=== PATIENT | female | born 1980 | race Caucasian/White ===

== ENCOUNTER 2018-07-05 08:36 | Inpatient (IN) | payer MEDICAID, OTHER ==
[~2018-07-05] VITALS: Ht 172.7 cm; Wt 76.9 kg
[~2018-07-05 08:36] MED LIST: ARIP10TA8 PO; BUPR-93 PO; DIVA500T52 PO; GABA-533 PO; NALT50TA6 PO; TOPI100T37 PO
[2018-07-05 09:14] LABS: BASOPHILS % (AUTO) 0.9 % (0.0-2.0); EOSINOPHILS % (AUTO) 0.2 % (1.0-6.0); HEMATOCRIT 37.2 % (36-46); HEMOGLOBIN 12.9 g/dL (12.0-16.0); LYMPHOCYTES # (AUTO) 1.6 K/uL (1.0-4.8); LYMPHOCYTES % (AUTO) 21.9 % (22.0-44.0); MEAN CORPUSCULAR HEMOGLOBIN 31.1 pg (26.0-34.0); MEAN CORPUSCULAR HGB CONC 34.7 G/dL (31.0-37.0); MEAN CORPUSCULAR VOLUME 90 fL (80-100); MONOCYTES % (AUTO) 14.6 % (2.0-9.0); NEUTROPHILS # (AUTO) 4.4 K/uL (1.8-7.7); NEUTROPHILS % (AUTO) 62.4 % (40.0-70.0); PLATELET COUNT (AUTO) 420 K/uL (150-450); RED BLOOD CELL COUNT(AUTO) 4.15 MIL/uL (4.00-5.20); RED CELL DISTRIBUTION WIDTH 13.5 % (11.5-14.5)
[2018-07-05 09:25] LABS: ANION GAP 12 mmol/L (8-16); CALCIUM, TOTAL 9.7 mg/dL (8.8-10.5); CARBON DIOXIDE 24 mmol/L (22-29); CHLORIDE 98 mmol/L (98-107); CREATININE 0.79 mg/dL (0.60-1.30); GLOMERULAR FILTR. RATE CALC > 60 mL/min (>60); GLUCOSE,RANDOM 84 mg/dL (70-110); POTASSIUM 4.2 mmol/L (3.5-5.1); SODIUM SERUM 134 mmol/L (136-145); UREA NITROGEN, BLOOD 17 mg/dL (7-18)
[2018-07-05 09:31] LABS: ALANINE AMINOTRANSFERASE 30 U/L (12-78); ALBUMIN 4.6 g/dL (3.4-5.0); ALKALINE PHOSPHATASE 87 U/L (46-116); ASPARTATE AMINOTRANSFERASE 29 U/L (15-37); BILIRUBIN,TOTAL 0.4 mg/dL (0.1-1.0); TOTAL PROTEIN, SERUM 8.7 g/dL (6.4-8.2)
[2018-07-05 09:43] LABS: VALPROIC ACID 8 mcg/mL (50-100)
[2018-07-05] MEDS ORDERED: HALOPERIDOL LACTATE 5 MG/ML VIAL IM ONE (10:15)
[2018-07-05] MEDS ORDERED: DiphenhydrAMINE HCL 50 MG/ML VIAL IM ONE (10:15)
[2018-07-05] MEDS ORDERED: LORazepam 2 MG/ML VIAL IM ONE (10:15)
[2018-07-05 10:55] LABS: AMPHET/METH SCREEN,URINE NEGATIVE (NEGATIVE); BARBITURATE SCREEN, URINE NEGATIVE (NEGATIVE); BENZODIAZEPINES SCREEN,URINE NEGATIVE (NEGATIVE); CANNABINOID SCREEN,URINE NEGATIVE (NEGATIVE); COCAINE SCREEN,URINE NEGATIVE (NEGATIVE); METHADONE SCREEN, URINE NEGATIVE (NEGATIVE); OPIATE SCREEN,URINE NEGATIVE (NEGATIVE); PHENCYCLIDINE SCREEN,URINE NEGATIVE (NEGATIVE)
[2018-07-05] MEDS ORDERED: ZOLPIDEM TARTRATE 10 MG TABLET PO ONE (23:30)
[2018-07-05] MEDS ORDERED: NICOTINE 21 MG/24 HOUR PATCH TD ONE (23:30)
[2018-07-06 06:31] LABS: CHOL/HDL RATIO 1.6 (3.9-5.7); FREE T4 (FREE THYROXINE) 0.85 ng/dL (0.76-1.46); THYROID STIMULATING HORMONE 1.25 uIU/mL (0.36-3.74)
[2018-07-06] MEDS: LORazepam 2 MG TABLET PO PRN ×2 (07:35→14:29)
[2018-07-06] MEDS: HALOPERIDOL 5 MG TABLET PO PRN ×2 (07:35→14:28)
[2018-07-06 13:55] VITALS: BP 128/84
[2018-07-06 18:52] VITALS: BP 118/79
[2018-07-06] MEDS: ZOLPIDEM TARTRATE 10 MG TABLET PO PRN (21:16)
[2018-07-07 05:36] VITALS: BP 125/75
[2018-07-07] MEDS: LORazepam 2 MG TABLET PO PRN ×3 (06:55→16:15)
[2018-07-07] MEDS: TOPIRAMATE 25 MG TABLET PO SCH ×2 (08:56→16:15)
[2018-07-07] MEDS: NICOTINE 21 MG/24 HOUR PATCH TD SCH (08:57)
[2018-07-07] MEDS ORDERED: ESCITALOPRAM OXALATE 10 MG TABLET PO SCH (09:00)
[2018-07-07] MEDS ORDERED: HydrOXYzine PAMOATE 50 MG CAPSULE PO PRN (15:30)
[2018-07-07] MEDS ORDERED: PROMETHAZINE HCL 25 MG TABLET PO PRN (15:30)
[2018-07-07] MEDS ORDERED: QUEtiapine FUMARATE 100 MG TABLET PO PRN (15:30)
[2018-07-07] MEDS ORDERED: LOPERAMIDE HCL 2 MG CAPSULE PO PRN (15:30)
[2018-07-07] MEDS: THIAMINE HCL 100 MG TABLET PO SCH (16:15)
[2018-07-07 18:26] VITALS: BP 153/71
[2018-07-07 19:30] VITALS: BP 138/75
[2018-07-07] MEDS: DIVALPROEX SODIUM 500 MG ER TABLET PO SCH (20:10)
[2018-07-07] MEDS: OLANZapine 5 MG RAPDIS TABLET PO SCH (20:10)
[2018-07-07] MEDS ORDERED: QUEtiapine FUMARATE 200 MG TABLET PO SCH (21:00)
[2018-07-08 05:48] VITALS: BP 104/62
[2018-07-08] MEDS: MULTIVITAMINS WITH MINERALS, THERAPEUTIC TABLET PO SCH (08:06)
[2018-07-08] MEDS: FOLIC ACID 1 MG TABLET PO SCH (08:06)
[2018-07-08] MEDS: NALTREXONE HCL 50 MG TABLET PO SCH (08:06)
[2018-07-08] MEDS: THIAMINE HCL 100 MG TABLET PO SCH ×2 (08:06→16:38)
[2018-07-08] MEDS: TOPIRAMATE 25 MG TABLET PO SCH ×2 (08:07→16:39)
[2018-07-08] MEDS: GABAPENTIN 100 MG CAPSULE PO SCH ×3 (08:07→16:39)
[2018-07-08] MEDS: NICOTINE 21 MG/24 HOUR PATCH TD SCH (08:07)
[2018-07-08] MEDS: LORazepam 2 MG TABLET PO PRN ×3 (08:08→16:38)
[2018-07-08 08:19] VITALS: BP 122/71
[2018-07-08] MEDS: MAGNESIUM HYDROXIDE SUSPENSION 30 ML UDCUP PO PRN ×2 (08:22→16:40)
[2018-07-08] MEDS: OLANZapine 5 MG RAPDIS TABLET PO PRN ×2 (08:34→16:39)
[2018-07-08] MEDS ORDERED: BuPROPion HCL XL 150 MG ER TABLET PO SCH (09:00)
[2018-07-08 16:39] VITALS: BP 118/77
[2018-07-08] MEDS: GuaiFENesin/D-METHORPHAN [SUGAR-FREE] 200-20MG/10 ML SYRUP UDCUP PO PRN (16:39)
[2018-07-08] MEDS ORDERED: TOPIRAMATE 25 MG TABLET PO SCH (21:00)
[2018-07-08] MEDS: ZOLPIDEM TARTRATE 10 MG TABLET PO PRN (21:03)
[2018-07-08] MEDS: OLANZapine 5 MG RAPDIS TABLET PO SCH (21:04)
[2018-07-08] MEDS: DIVALPROEX SODIUM 500 MG ER TABLET PO SCH (21:04)
[2018-07-09 06:27] VITALS: BP 110/66
[2018-07-09 08:18] VITALS: BP 124/67
[2018-07-09] MEDS: NALTREXONE HCL 50 MG TABLET PO SCH (08:28)
[2018-07-09] MEDS: MULTIVITAMINS WITH MINERALS, THERAPEUTIC TABLET PO SCH (08:28)
[2018-07-09] MEDS: BuPROPion HCL XL 150 MG ER TABLET PO SCH (08:28)
[2018-07-09] MEDS: NICOTINE 21 MG/24 HOUR PATCH TD SCH (08:28)
[2018-07-09] MEDS: FOLIC ACID 1 MG TABLET PO SCH (08:28)
[2018-07-09] MEDS: GABAPENTIN 100 MG CAPSULE PO SCH ×3 (08:28→17:02)
[2018-07-09] MEDS: THIAMINE HCL 100 MG TABLET PO SCH ×2 (08:29→17:02)
[2018-07-09] MEDS ORDERED: TOPIRAMATE 100 MG TABLET PO SCH (09:00)
[2018-07-09] MEDS: LORazepam 2 MG TABLET PO PRN ×2 (10:18→15:17)
[2018-07-09] MEDS: OLANZapine 5 MG RAPDIS TABLET PO PRN (12:29)
[2018-07-09 17:17] VITALS: BP 128/79
[2018-07-09] MEDS: OLANZapine 5 MG RAPDIS TABLET PO SCH (20:55)
[2018-07-09] MEDS: DIVALPROEX SODIUM 500 MG ER TABLET PO SCH (20:55)
[2018-07-10 04:01] VITALS: BP 100/71
[2018-07-10] MEDS: LORazepam 2 MG TABLET PO PRN ×3 (04:27→15:30)
[2018-07-10] MEDS: MAG HYDROX/AL HYDROX/SIMETH ES 30 ML SUSPENSION UDCUP PO PRN (04:27)
[2018-07-10 08:20] VITALS: BP 122/64
[2018-07-10] MEDS: MULTIVITAMINS WITH MINERALS, THERAPEUTIC TABLET PO SCH (08:20)
[2018-07-10] MEDS: BuPROPion HCL XL 150 MG ER TABLET PO SCH (08:20)
[2018-07-10] MEDS: FOLIC ACID 1 MG TABLET PO SCH (08:20)
[2018-07-10] MEDS: THIAMINE HCL 100 MG TABLET PO SCH ×2 (08:20→17:06)
[2018-07-10] MEDS: NICOTINE 21 MG/24 HOUR PATCH TD SCH (08:20)
[2018-07-10] MEDS: NALTREXONE HCL 50 MG TABLET PO SCH (08:20)
[2018-07-10] MEDS: GABAPENTIN 100 MG CAPSULE PO SCH ×3 (08:20→17:06)
[2018-07-10] MEDS: TOPIRAMATE 100 MG TABLET PO SCH ×2 (08:20→17:06)
[2018-07-10] MEDS: MAGNESIUM HYDROXIDE SUSPENSION 30 ML UDCUP PO PRN (08:23)
[2018-07-10] MEDS: ACETAMINOPHEN 325 MG TABLET PO PRN (09:37)
[2018-07-10] MEDS: OLANZapine 5 MG RAPDIS TABLET PO PRN (15:30)
[2018-07-10 17:04] VITALS: BP 125/72
[2018-07-10] MEDS: BISACODYL 5 MG EC TABLET PO PRN (19:31)
[2018-07-10] MEDS: ZOLPIDEM TARTRATE 10 MG TABLET PO PRN (20:17)
[2018-07-10] MEDS: OLANZapine 5 MG RAPDIS TABLET PO SCH (20:17)
[2018-07-10] MEDS: DIVALPROEX SODIUM 500 MG ER TABLET PO SCH (20:44)
[2018-07-11] MEDS: LORazepam 2 MG TABLET PO PRN ×4 (04:46→21:29)
[2018-07-11 04:47] VITALS: BP 111/66
[2018-07-11 08:05] VITALS: BP 134/82
[2018-07-11] MEDS: BuPROPion HCL XL 150 MG ER TABLET PO SCH (08:39)
[2018-07-11] MEDS: TOPIRAMATE 100 MG TABLET PO SCH ×2 (08:39→16:30)
[2018-07-11] MEDS: THIAMINE HCL 100 MG TABLET PO SCH ×2 (08:39→16:30)
[2018-07-11] MEDS: MULTIVITAMINS WITH MINERALS, THERAPEUTIC TABLET PO SCH (08:39)
[2018-07-11] MEDS: NALTREXONE HCL 50 MG TABLET PO SCH (08:39)
[2018-07-11] MEDS: FOLIC ACID 1 MG TABLET PO SCH (08:39)
[2018-07-11] MEDS: GABAPENTIN 100 MG CAPSULE PO SCH ×3 (08:39→16:30)
[2018-07-11] MEDS: NICOTINE 21 MG/24 HOUR PATCH TD SCH (08:40)
[2018-07-11] MEDS: MAGNESIUM HYDROXIDE SUSPENSION 30 ML UDCUP PO PRN (10:13)
[2018-07-11 17:33] VITALS: BP 146/95
[2018-07-11] MEDS: OLANZapine 5 MG RAPDIS TABLET PO SCH (20:44)
[2018-07-11] MEDS: DIVALPROEX SODIUM 500 MG ER TABLET PO SCH (20:44)
[2018-07-11] MEDS: ACETAMINOPHEN 325 MG TABLET PO PRN (22:34)
[2018-07-11] MEDS: ZOLPIDEM TARTRATE 10 MG TABLET PO PRN (23:57)
[2018-07-12 05:25] VITALS: BP 125/70
[2018-07-12] MEDS: OLANZapine 5 MG RAPDIS TABLET PO PRN (07:05)
[2018-07-12] MEDS: LORazepam 2 MG TABLET PO PRN ×3 (07:05→18:18)
[2018-07-12] MEDS: GABAPENTIN 100 MG CAPSULE PO SCH ×3 (08:08→16:30)
[2018-07-12] MEDS: BuPROPion HCL XL 150 MG ER TABLET PO SCH (08:08)
[2018-07-12] MEDS: TOPIRAMATE 100 MG TABLET PO SCH ×2 (08:08→16:30)
[2018-07-12] MEDS: FOLIC ACID 1 MG TABLET PO SCH (08:08)
[2018-07-12] MEDS: MULTIVITAMINS WITH MINERALS, THERAPEUTIC TABLET PO SCH (08:08)
[2018-07-12] MEDS: NALTREXONE HCL 50 MG TABLET PO SCH (08:08)
[2018-07-12] MEDS: THIAMINE HCL 100 MG TABLET PO SCH ×2 (08:08→16:30)
[2018-07-12] MEDS: NICOTINE 21 MG/24 HOUR PATCH TD SCH (08:12)
[2018-07-12 08:35] VITALS: BP 140/90
[2018-07-12] MEDS: OLANZapine 5 MG RAPDIS TABLET PO SCH (20:36)
[2018-07-12] MEDS: DIVALPROEX SODIUM 500 MG ER TABLET PO SCH (20:42)
[2018-07-12 21:10] VITALS: BP 123/82
[2018-07-12] MEDS: BISACODYL 5 MG EC TABLET PO PRN (21:15)
[2018-07-12] MEDS: ACETAMINOPHEN 325 MG TABLET PO PRN (21:19)
[2018-07-13 03:50] VITALS: BP 116/85
[2018-07-13] MEDS: LORazepam 2 MG TABLET PO PRN ×3 (03:56→16:10)
[2018-07-13] MEDS: ACETAMINOPHEN 325 MG TABLET PO PRN (03:57)
[2018-07-13] MEDS: NALTREXONE HCL 50 MG TABLET PO SCH (08:08)
[2018-07-13] MEDS: FOLIC ACID 1 MG TABLET PO SCH (08:08)
[2018-07-13] MEDS: NICOTINE 21 MG/24 HOUR PATCH TD SCH (08:08)
[2018-07-13] MEDS: BuPROPion HCL XL 150 MG ER TABLET PO SCH (08:08)
[2018-07-13] MEDS: MULTIVITAMINS WITH MINERALS, THERAPEUTIC TABLET PO SCH (08:08)
[2018-07-13] MEDS: MAGNESIUM HYDROXIDE SUSPENSION 30 ML UDCUP PO PRN ×2 (08:08→21:05)
[2018-07-13] MEDS: TOPIRAMATE 100 MG TABLET PO SCH ×2 (08:08→16:56)
[2018-07-13] MEDS: GABAPENTIN 100 MG CAPSULE PO SCH ×3 (08:08→16:56)
[2018-07-13] MEDS: THIAMINE HCL 100 MG TABLET PO SCH ×2 (08:08→16:56)
[2018-07-13 08:23] VITALS: BP 113/90
[2018-07-13] MEDS: OLANZapine 5 MG RAPDIS TABLET PO PRN (09:47)
[2018-07-13 17:31] VITALS: BP 116/76
[2018-07-13] MEDS: OLANZapine 5 MG RAPDIS TABLET PO SCH (20:03)
[2018-07-13] MEDS: DIVALPROEX SODIUM 500 MG ER TABLET PO SCH (21:00)
[2018-07-13] MEDS: ZOLPIDEM TARTRATE 10 MG TABLET PO PRN (21:05)
[2018-07-14 01:58] VITALS: BP 112/80
[2018-07-14] MEDS: OLANZapine 5 MG RAPDIS TABLET PO PRN (06:41)
[2018-07-14] MEDS: LORazepam 2 MG TABLET PO PRN ×3 (06:41→18:41)
[2018-07-14] MEDS: TOPIRAMATE 100 MG TABLET PO SCH ×2 (08:18→16:30)
[2018-07-14] MEDS: MULTIVITAMINS WITH MINERALS, THERAPEUTIC TABLET PO SCH (08:18)
[2018-07-14] MEDS: NALTREXONE HCL 50 MG TABLET PO SCH (08:18)
[2018-07-14] MEDS: NICOTINE 21 MG/24 HOUR PATCH TD SCH (08:18)
[2018-07-14] MEDS: FOLIC ACID 1 MG TABLET PO SCH (08:18)
[2018-07-14] MEDS: BuPROPion HCL XL 150 MG ER TABLET PO SCH (08:18)
[2018-07-14] MEDS: THIAMINE HCL 100 MG TABLET PO SCH ×2 (08:18→16:30)
[2018-07-14] MEDS: GABAPENTIN 100 MG CAPSULE PO SCH ×3 (08:19→16:30)
[2018-07-14] MEDS: MAGNESIUM HYDROXIDE SUSPENSION 30 ML UDCUP PO PRN (08:19)
[2018-07-14 08:40] VITALS: BP 110/75
[2018-07-14] MEDS: ACETAMINOPHEN 325 MG TABLET PO PRN ×2 (08:42→17:08)
[2018-07-14] MEDS ORDERED: ARIPiprazole 5 MG TABLET PO PRN (13:30)
[2018-07-14 16:24] VITALS: BP 129/70
[2018-07-14] MEDS: CarBAMazepine 200 MG TABLET PO SCH (16:30)
[2018-07-14 17:04] VITALS: BP 126/80
[2018-07-14] MEDS: GuaiFENesin/D-METHORPHAN [SUGAR-FREE] 200-20MG/10 ML SYRUP UDCUP PO PRN (17:06)
[2018-07-14] MEDS: BISACODYL 5 MG EC TABLET PO PRN (17:57)
[2018-07-15 03:04] VITALS: BP 122/75
[2018-07-15] MEDS: LORazepam 2 MG TABLET PO PRN ×2 (06:44→16:33)
[2018-07-15] MEDS ORDERED: ARIPiprazole 15 MG TABLET PO SCH ×2 (09:00→21:00)
[2018-07-15] MEDS: BuPROPion HCL XL 150 MG ER TABLET PO SCH (09:04)
[2018-07-15] MEDS: GABAPENTIN 100 MG CAPSULE PO SCH ×3 (09:05→16:33)
[2018-07-15] MEDS: TOPIRAMATE 100 MG TABLET PO SCH ×2 (09:05→16:33)
[2018-07-15] MEDS: MULTIVITAMINS WITH MINERALS, THERAPEUTIC TABLET PO SCH (09:05)
[2018-07-15] MEDS: FOLIC ACID 1 MG TABLET PO SCH (09:05)
[2018-07-15] MEDS: CarBAMazepine 200 MG TABLET PO SCH ×3 (09:05→20:15)
[2018-07-15] MEDS: NALTREXONE HCL 50 MG TABLET PO SCH (09:06)
[2018-07-15] MEDS: THIAMINE HCL 100 MG TABLET PO SCH ×2 (09:07→16:33)
[2018-07-15] MEDS: NICOTINE 21 MG/24 HOUR PATCH TD SCH (09:07)
[2018-07-15 09:13] VITALS: BP 119/77
[2018-07-15 16:24] VITALS: BP 122/88
[2018-07-15] MEDS: ACETAMINOPHEN 325 MG TABLET PO PRN (16:34)
[2018-07-15] MEDS: ZOLPIDEM TARTRATE 10 MG TABLET PO PRN (20:15)
[2018-07-16 00:30] VITALS: BP 122/88
[2018-07-16] MEDS: LORazepam 2 MG TABLET PO PRN ×5 (00:36→17:08)
[2018-07-16] MEDS: ACETAMINOPHEN 325 MG TABLET PO PRN (04:53)
[2018-07-16 08:25] VITALS: BP 135/85
[2018-07-16] MEDS: MULTIVITAMINS WITH MINERALS, THERAPEUTIC TABLET PO SCH (08:31)
[2018-07-16] MEDS: THIAMINE HCL 100 MG TABLET PO SCH ×2 (08:31→17:08)
[2018-07-16] MEDS: NICOTINE 21 MG/24 HOUR PATCH TD SCH (08:31)
[2018-07-16] MEDS: NALTREXONE HCL 50 MG TABLET PO SCH (08:31)
[2018-07-16] MEDS: FOLIC ACID 1 MG TABLET PO SCH (08:31)
[2018-07-16] MEDS: TOPIRAMATE 100 MG TABLET PO SCH ×2 (08:32→17:08)
[2018-07-16] MEDS: BuPROPion HCL XL 150 MG ER TABLET PO SCH (08:32)
[2018-07-16] MEDS: GABAPENTIN 100 MG CAPSULE PO SCH ×3 (08:33→17:08)
[2018-07-16] MEDS: MAG HYDROX/AL HYDROX/SIMETH ES 30 ML SUSPENSION UDCUP PO PRN (12:56)
[2018-07-16 16:07] VITALS: BP 127/78
[2018-07-16] MEDS: CarBAMazepine 200 MG TABLET PO SCH (20:15)
[2018-07-16] MEDS: ARIPiprazole 10 MG TABLET PO SCH (20:16)
[2018-07-16] MEDS: ZOLPIDEM TARTRATE 10 MG TABLET PO PRN (20:16)
[2018-07-17 05:30] VITALS: BP 139/87
[2018-07-17] MEDS: NALTREXONE HCL 50 MG TABLET PO SCH (08:06)
[2018-07-17] MEDS: FOLIC ACID 1 MG TABLET PO SCH (08:06)
[2018-07-17] MEDS: BuPROPion HCL XL 150 MG ER TABLET PO SCH (08:06)
[2018-07-17] MEDS: THIAMINE HCL 100 MG TABLET PO SCH (08:06)
[2018-07-17] MEDS: GABAPENTIN 100 MG CAPSULE PO SCH ×3 (08:06→16:01)
[2018-07-17] MEDS: TOPIRAMATE 100 MG TABLET PO SCH ×2 (08:06→16:01)
[2018-07-17] MEDS: MULTIVITAMINS WITH MINERALS, THERAPEUTIC TABLET PO SCH (08:06)
[2018-07-17] MEDS: NICOTINE 21 MG/24 HOUR PATCH TD SCH (08:07)
[2018-07-17 08:08] VITALS: BP 128/83
[2018-07-17] MEDS: LORazepam 2 MG TABLET PO PRN ×3 (08:12→21:07)
[2018-07-17] MEDS: IBUPROFEN 600 MG TABLET PO PRN (08:12)
[2018-07-17 16:55] VITALS: BP 143/100
[2018-07-17] MEDS: MAGNESIUM HYDROXIDE SUSPENSION 30 ML UDCUP PO PRN (20:37)
[2018-07-17] MEDS: CarBAMazepine 200 MG TABLET PO SCH (20:55)
[2018-07-17] MEDS: ARIPiprazole 10 MG TABLET PO SCH (20:55)
[2018-07-17] MEDS: ZOLPIDEM TARTRATE 10 MG TABLET PO PRN (22:03)
[2018-07-17 22:07] VITALS: BP 135/95
[2018-07-18 05:21] VITALS: BP 134/94
[2018-07-18 08:12] VITALS: BP 111/75
[2018-07-18] MEDS: BuPROPion HCL XL 150 MG ER TABLET PO SCH (08:20)
[2018-07-18] MEDS: LORazepam 2 MG TABLET PO PRN ×3 (08:21→18:07)
[2018-07-18] MEDS: MULTIVITAMINS WITH MINERALS, THERAPEUTIC TABLET PO SCH (08:21)
[2018-07-18] MEDS: GABAPENTIN 100 MG CAPSULE PO SCH ×3 (08:21→16:08)
[2018-07-18] MEDS: NALTREXONE HCL 50 MG TABLET PO SCH (08:21)
[2018-07-18] MEDS: TOPIRAMATE 100 MG TABLET PO SCH ×2 (08:21→16:08)
[2018-07-18] MEDS: NICOTINE 21 MG/24 HOUR PATCH TD SCH (08:22)
[2018-07-18] MEDS: ACETAMINOPHEN 325 MG TABLET PO PRN (09:49)
[2018-07-18] MEDS: MAGNESIUM HYDROXIDE SUSPENSION 30 ML UDCUP PO PRN (09:49)
[2018-07-18 16:09] VITALS: BP 127/90
[2018-07-18 17:15] VITALS: BP 122/85
[2018-07-18] MEDS: IBUPROFEN 600 MG TABLET PO PRN (17:16)
[2018-07-18] MEDS: ARIPiprazole 10 MG TABLET PO SCH (20:23)
[2018-07-18] MEDS: CarBAMazepine 200 MG TABLET PO SCH (21:00)
[2018-07-18] MEDS: ZOLPIDEM TARTRATE 10 MG TABLET PO PRN (21:22)
[2018-07-19] MEDS: LORazepam 2 MG TABLET PO PRN ×3 (05:32→16:08)
[2018-07-19] MEDS: NICOTINE 21 MG/24 HOUR PATCH TD SCH (08:12)
[2018-07-19] MEDS: MULTIVITAMINS WITH MINERALS, THERAPEUTIC TABLET PO SCH (08:12)
[2018-07-19] MEDS: TOPIRAMATE 100 MG TABLET PO SCH ×2 (08:12→16:07)
[2018-07-19] MEDS: GABAPENTIN 100 MG CAPSULE PO SCH ×3 (08:12→16:08)
[2018-07-19] MEDS: BuPROPion HCL XL 150 MG ER TABLET PO SCH (08:12)
[2018-07-19] MEDS: NALTREXONE HCL 50 MG TABLET PO SCH (08:12)
[2018-07-19 08:25] VITALS: BP 122/78
[2018-07-19] MEDS: BISACODYL 5 MG EC TABLET PO PRN ×2 (08:32→20:24)
[2018-07-19] MEDS: MAGNESIUM HYDROXIDE SUSPENSION 30 ML UDCUP PO PRN (11:00)
[2018-07-19 11:20] VITALS: BP 136/84
[2018-07-19] MEDS: IBUPROFEN 600 MG TABLET PO PRN (11:20)
[2018-07-19 16:16] VITALS: BP 136/85
[2018-07-19] MEDS: ARIPiprazole 10 MG TABLET PO SCH (20:20)
[2018-07-19] MEDS: CarBAMazepine 200 MG TABLET PO SCH (20:24)
[2018-07-19] MEDS: ZOLPIDEM TARTRATE 10 MG TABLET PO PRN (21:18)
[2018-07-20] MEDS: MAGNESIUM HYDROXIDE SUSPENSION 30 ML UDCUP PO PRN (00:14)
[2018-07-20] MEDS: LORazepam 2 MG TABLET PO PRN ×4 (00:14→17:16)
[2018-07-20 00:42] VITALS: BP 124/76
[2018-07-20] MEDS: NALTREXONE HCL 50 MG TABLET PO SCH (08:20)
[2018-07-20] MEDS: MULTIVITAMINS WITH MINERALS, THERAPEUTIC TABLET PO SCH (08:20)
[2018-07-20] MEDS: GABAPENTIN 100 MG CAPSULE PO SCH ×3 (08:20→16:27)
[2018-07-20] MEDS: TOPIRAMATE 100 MG TABLET PO SCH ×2 (08:21→16:28)
[2018-07-20] MEDS: NICOTINE 21 MG/24 HOUR PATCH TD SCH (08:22)
[2018-07-20 08:23] VITALS: BP 113/80
[2018-07-20] MEDS: IBUPROFEN 600 MG TABLET PO PRN ×2 (08:23→16:28)
[2018-07-20] MEDS: BuPROPion HCL XL 150 MG ER TABLET PO SCH (08:25)
[2018-07-20 09:23] VITALS: BP 114/84
[2018-07-20 16:25] VITALS: BP 122/80
[2018-07-20 17:21] VITALS: BP 128/87
[2018-07-20] MEDS: ARIPiprazole 10 MG TABLET PO SCH (20:18)
[2018-07-20] MEDS: CarBAMazepine 200 MG TABLET PO SCH (21:00)
[2018-07-20] MEDS: ZOLPIDEM TARTRATE 10 MG TABLET PO PRN (21:01)
[2018-07-21 01:15] VITALS: BP 126/86
[2018-07-21] MEDS: MAGNESIUM HYDROXIDE SUSPENSION 30 ML UDCUP PO PRN (03:09)
[2018-07-21] MEDS: LORazepam 2 MG TABLET PO PRN ×3 (03:09→16:31)
[2018-07-21 08:07] VITALS: BP 133/85
[2018-07-21] MEDS: TOPIRAMATE 100 MG TABLET PO SCH ×2 (08:09→17:21)
[2018-07-21] MEDS: GABAPENTIN 100 MG CAPSULE PO SCH ×3 (08:09→17:21)
[2018-07-21] MEDS: BuPROPion HCL XL 150 MG ER TABLET PO SCH (08:10)
[2018-07-21] MEDS: NALTREXONE HCL 50 MG TABLET PO SCH (08:10)
[2018-07-21] MEDS: NICOTINE 21 MG/24 HOUR PATCH TD SCH (08:10)
[2018-07-21] MEDS: MULTIVITAMINS WITH MINERALS, THERAPEUTIC TABLET PO SCH (08:10)
[2018-07-21] MEDS: IBUPROFEN 600 MG TABLET PO PRN ×2 (10:47→18:47)
[2018-07-21 11:47] VITALS: BP 130/82
[2018-07-21] MEDS ORDERED: NALT50TA PO (15:56)
[2018-07-21] MEDS ORDERED: ARIP10TA8 PO (15:56)
[2018-07-21] MEDS ORDERED: GABA-529 PO (15:56)
[2018-07-21] MEDS ORDERED: TOPI100T37 PO (15:56)
[2018-07-21] MEDS ORDERED: BUPR-47 PO (15:56)
[2018-07-21 16:47] VITALS: BP 148/86
[2018-07-21 18:45] VITALS: BP 132/82
[2018-07-21] MEDS: ARIPiprazole 10 MG TABLET PO SCH (20:13)
[2018-07-21] MEDS: CarBAMazepine 200 MG TABLET PO SCH (21:00)
[2018-07-21] MEDS: ZOLPIDEM TARTRATE 10 MG TABLET PO PRN (21:04)
[2018-07-22 03:43] VITALS: BP 109/85
[2018-07-22] MEDS: LORazepam 2 MG TABLET PO PRN ×2 (03:45→08:29)
[2018-07-22 07:02] VITALS: BP 117/79
[2018-07-22] MEDS: IBUPROFEN 600 MG TABLET PO PRN (07:04)
[2018-07-22] MEDS: NICOTINE 21 MG/24 HOUR PATCH TD SCH (08:28)
[2018-07-22] MEDS: TOPIRAMATE 100 MG TABLET PO SCH (08:29)
[2018-07-22] MEDS: GABAPENTIN 100 MG CAPSULE PO SCH ×2 (08:29→12:21)
[2018-07-22] MEDS: BuPROPion HCL XL 150 MG ER TABLET PO SCH (08:29)
[2018-07-22] MEDS: MULTIVITAMINS WITH MINERALS, THERAPEUTIC TABLET PO SCH (08:29)
[2018-07-22] MEDS: NALTREXONE HCL 50 MG TABLET PO SCH (08:29)
[2018-07-22] MEDS ORDERED: ARIP20TA PO (09:57)
[2018-07-22] MEDS ORDERED: GABA-529 PO (09:57)
== END 2018-07-22 13:38 | disposition home or self-care (01) | DRG 750 ==
LOC: EMS 08:36 → B3A 07-06 11:42
PROVIDERS: ADMIT Psychiatry & Neurology Psychiatry; ATTEND Psychiatry & Neurology Psychiatry
DX: F25.0 Schizoaffective disorder, bipolar type (principal); E87.1 Hypo-osmolality and hyponatremia; Z79.899 Other long term (current) drug therapy; Z83.3 Family history of diabetes mellitus; Z91.19 Patient's noncompliance with other medical treatment and regimen; Z82.3 Family history of stroke
CPT/HCPCS: 70450; 84436; 84439; 84443; 87081; 96372; G0480; J1200; J1630; J2060